=== PATIENT | female | born 1970 | race Caucasian/White ===

== ENCOUNTER 2023-08-19 17:19 | Emergency (ER) | payer OTHER, SELFPAY ==
[2023-08-19 17:22] VITALS: BP 211/90; PULSE 115; RESP 18; TEMP 36.6; O2SAT 98
--- NOTE | 2023-08-19 17:26 | ECG_ITS ---
Measurements Intervals [place] Rate: 102 P: 69 GA: 184 QRS: -54 QRSD: 157 T: 120 QT: 379 QTc: 495 Interpretive Statements SINUS TACHYCARDIA LEFT AXIS DEVIATION LEFT BUNDLE BRANCH BLOCK ABNORMAL ECG NO PREVIOUS ECG AVAILABLE FOR COMPARISON Electronically Signed On 08-20-2023 13:53:02 [employer] by Ryan Staley M.D.
[2023-08-19 19:43] VITALS: BP 173/89; PULSE 106; RESP 18; TEMP 37.1; O2SAT 99
--- NOTE | 2023-08-19 20:02 | PC.NURSE ---
Pt states that she was prescribed metoprolol today due to heart rate being high and sent her to the ED. Pt states that she started taking amlodipine and losartan about a month ago. Pt denies chest pain, edema, dizziness, headache, altered mental status.
[2023-08-19 20:04] VITALS: O2SAT 99
--- NOTE | 2023-08-19 20:13 | ED.GENADULT ---
HPI - General Adult General Chief complaint: Recheck/Abnormal Lab/Rx Stated complaint: high BP Time Seen by Provider: 08/19/23 19:51 Source: patient Mode of arrival: ambulatory Limitations: no limitations History of Present Illness HPI narrative: This is a 53-year-old female who presents to the ED with chief complaint of elevated blood pressures. She reports that she was seen in Cardiology office today and had several measured in the 200 range. Patient states that she was recently diagnosed attention trying to optimize her medications. She was just prescribed today. She has been taking 5 and losartan hydrochlorothiazide for the past month and a half. States she feels very anxious about her blood pressure. Denies chest pain, vision change, shortness of breath, leg swelling, palpitations. States she is completely asymptomatic. Related Data Allergies Allergy/AdvReac Type Severity Reaction Status Date / Time Penicillins Allergy Unknown UNKNOWN, Verified 03/03/17 11:31 A CHILD Review of Systems Review of Systems: All systems as dictated in HPI Exam Narrative: GENERAL: Well-appearing, well-nourished, and in no acute distress. HEAD: Normocephalic, atraumatic. EYES: PERRLA and EOMI. ENT: Nares clear, no rhinorrhea or epistaxis. Mucous membranes moist. Oropharynx without tonsillar hypertrophy exudate or other lesions. NECK: Supple. No adenopathy or masses. CHEST: No respiratory distress. Clear to auscultation. No wheezes rales or rhonchi HEART: Regular rate and rhythm. No murmur heard. Normal peripheral pulses. ABDOMEN: Soft, nontender, nondistended, normal active bowel sounds. MSK: Normal range of motion. No edema. SKIN: Warm, dry, no rash. NEURO: Alert and oriented x3. No focal deficits. PSYCH: Normal mood and affect. Course Vital Signs Vital signs: Vital Signs Temperature 98 F 08/19/23 17:22 Pulse Rate 115 H 08/19/23 17:22 Respiratory Rate 18 08/19/23 17:22 Blood Pressure 211/90 H 08/19/23 17:22 Pulse Oximetry 98 08/19/23 17:22 Oxygen Delivery Room Air 08/19/23 17:22 Temperature 98.7 F 08/19/23 19:43 Pulse Rate 94 08/19/23 20:30 Respiratory Rate 18 08/19/23 19:43 Blood Pressure 173/89 H 08/19/23 19:43 Pulse Oximetry 99 08/19/23 20:04 Oxygen Delivery Room Air 08/19/23 20:04 Medical Decision Making MDM Narrative Medical decision making narrative: This is a 53-year-old female who presents to the ED with chief complaint of asymptomatic hypertension. She has been recently diagnosed blood pressure and is frequently checking her blood pressures. Vitals initially show a systolic blood pressure 211. This improved in the ED the 173 without intervention. She is very anxious about her blood pressures and this is probably making her pressures worse. She has absolutely no chest pain, vision changes shortness of breath or other signs of hypertensive emergency. If she is to start a new metoprolol prescription per the relocation director. Encouraged her to do so and follow up with them next week. Pt will be discharged in stable condition. Return precautions given and supportive measures discussed. Pt is understanding and agreeable with plan for discharge and follow-up with PCP/specialist Vital Signs Vital Signs: Vital Signs Temperature 98 F 08/19/23 17:22 Pulse Rate 115 H 08/19/23 17:22 Respiratory Rate 18 08/19/23 17:22 Blood Pressure 211/90 H 08/19/23 17:22 Pulse Oximetry 98 08/19/23 17:22 Oxygen Delivery Room Air 08/19/23 17:22 Temperature 98.7 F 08/19/23 19:43 Pulse Rate 94 08/19/23 20:30 Respiratory Rate 18 08/19/23 19:43 Blood Pressure 173/89 H 08/19/23 19:43 Pulse Oximetry 99 08/19/23 20:04 Oxygen Delivery Room Air 08/19/23 20:04 Discharge Plan Discharge Clinical Impression: Asymptomatic hypertension Patient Disposition: Home, Self-Care Condition: Stable Instructions: Antibiotic Form Additio
[2023-08-19 20:30] VITALS: PULSE 94
[2023-08-19] MEDS: METOPROLOL TARTRATE 50 MG TAB 25 MG PO (20:30)
== END 2023-08-19 20:41 | disposition home or self-care (01) ==
LOC: ANHED 20:32
PROVIDERS: Emergency Provider Physician Assistant
DX: I10 Essential (primary) hypertension (principal); R00.0 Tachycardia, unspecified; I44.7 Left bundle-branch block, unspecified
CPT/HCPCS: 93005; 99283; A9270